=== PATIENT | female | born 1965 | race Caucasian/White ===

== ENCOUNTER 2018-10-01 17:48 | Emergency (ER) | payer SELFPAY ==
--- NOTE | 2018-10-01 18:23 | ER Document Report ---
HPI - HPI Patient complains to provider of: right knee pain Time Seen by Provider: 10/01/18 18:14 Onset: Other - 4 months Onset/Duration: Persistent Quality of pain: Achy Severity: Severe Pain Level: 5 Context: This 52-year-old female presents to the emergency department with complaints of right knee pain for the past 4 months. She denies trauma. She reports that she just woke up one day and her knee was hurting. She reports increased pain after she sits at her desk for long time and then stands up. Denies fever vomiting diarrhea. Reports that she is taken Tylenol and ibuprofen without relief of symptoms. Associated Symptoms: None Exacerbated by: Movement, Walking Relieved by: Denies Similar symptoms previously: No Recently seen / treated by doctor: No - REPRODUCTIVE Reproductive: DENIES: : Past Medical History - General Information source: Patient Last Menstrual Period: >1 year - Social History Smoking Status: Unknown if Ever Smoked Cigarette use (# per day): No Frequency of alcohol use: None Drug Abuse: None Occupation: sits at a desk Lives with: Family Family History: None Patient has suicidal ideation: No Patient has homicidal ideation: No - Past Medical History Cardiac Medical History: Denies: Hx Coronary Artery Disease, Hx DVT Pulmonary Medical History: Denies: Hx Asthma Endocrine Medical History: Denies: Hx Diabetes Mellitus Type 1, Hx Diabetes Mellitus Type 2 Past Surgical History: Reports: Hx Tubal Ligation Vertical Provider Document - CONSTITUTIONAL Agree With Documented VS: Yes Exam Limitations: No Limitations General Appearance: WD/WN, No Apparent Distress - INFECTION CONTROL TRAVEL OUTSIDE OF THE [place] IN LAST 30 DAYS: No - HEENT HEENT: Atraumatic, Normocephalic - NECK Neck: Supple - RESPIRATORY Respiratory: No Respiratory Distress - CARDIOVASCULAR Cardiovascular: Regular Rate - MUSCULOSKELETAL/EXTREMETIES Musculoskeletal/Extremeties: MAEW, FROM, Tender - anterior right knee ttp, no erythema,no waRMTH, no obvious swelling, FROM, c/o pain with extension of leg, no obvious deformity, good pedal pulse good cap refill, neg homans, no calf pain - NEURO Level of Consciousness: Awake, Alert, Appropriate Motor/Sensory: No Motor Deficit - DERM Integumentary: Warm, Dry Adult Front & Back Diagram: 1 - reports pain, ttp, no obvious swelling, no erythema, no warmth. Course - Re-evaluation Re-evalutation: 10/01/18 19:04 This 52-year-old female presents to the emergency department with right knee pain for the past 4 months. Denies trauma. Reports the knee hurts more when she sits for long time and goes to stand up. Denies past medical history of injury to the knee. Knee X-Ray 10/01/18 18:21 IMPRESSION: Significant joint effusion. No acute osseous finding. 10/01/18 19:43 Patient was instructed on joint effusion. She would like to be treated with Olman wrap compression ice and follow-up with orthopedics. She reports her is also being seen on the main side of the emergency department because he recently had brain surgery and is having effects from that. She is worried that he is going to be transferred to [facility]. She would like to be with him now. She was instructed on signs and symptoms of infection to the knee. She was instructed that she does need to be seen by orthopedics for aspiration of the fluid. She verbalized understanding to all instructions. - Vital Signs Vital signs: Temp Pulse Resp BP Pulse Ox 98.2 F 68 16 145/76 H 94 10/01/18 18:01 10/01/18 18:01 10/01/18 18:01 10/01/18 18:01 10/01/18 18:01 - Diagnostic Test Radiology reviewed: Image reviewed, Reports reviewed Discharge - Discharge Clinical Impression: Right knee pain, Effusion, right knee Condition: Stable Disposition: HOME, SELF-CARE Instructions: Olman Wrap ([facility]), Ice & Elevation ([facility]), Knee Effusion ([facility]), Oral Narcotic Medication ([facility]) Additional Instructions: *You have been evaluated for right knee pain, effusion *Maintain the olman wrap *Rest/Ice/Elevate your knee *Follow up with orthopedics this week for evaluation and aspiration as indicated *Take medication as prescribed *Return to ED for worsening condition, changes, needs Prescriptions: Ibuprofen [Motrin 800 mg Tablet] 800 mg PO TID #15 tablet Forms: Elevated Blood Pressure, Return to Work Referrals: MALOU DAWKINS MD [ACTIVE PROVISIONAL STAFF] - Follow up as needed [facility] [Provider Group] - Follow up as needed
--- NOTE | 2018-10-01 18:56 | RADIOLOGY REPORT (SQ) ---
EXAM DESCRIPTION: KNEE RIGHT 4 VIEWS COMPLETED DATE/TIME: 10/01/2018 6:48 pm REASON FOR STUDY: pain COMPARISON: None. NUMBER OF VIEWS: Four views. TECHNIQUE: AP, lateral, and both oblique radiographic images acquired of the right knee. LIMITATIONS: None. FINDINGS: MINERALIZATION: Normal. BONES: No acute fracture or dislocation. No worrisome bone lesions. JOINT: There is a joint effusion. SOFT TISSUES: No soft tissue swelling. No radio-opaque foreign body. OTHER: No other significant finding. IMPRESSION: Significant joint effusion. No acute osseous finding. TECHNICAL DOCUMENTATION: JOB ID: [id number] [employer]- All Rights Reserved Reading location - IP/workstation name: [email or web address]
[2018-10-01] MEDS ORDERED: HYDROCODONE/ACETAMINOPHEN 5-325 MG (6 TAB/ER DISP) PO PRN (19:08)
[2018-10-01 20:30] VITALS: BP 148/76
== END 2018-10-01 20:33 | disposition home or self-care (01) ==
LOC: EDBD → ER 17:48
DX: M25.561 Pain in right knee (principal); M25.461 Effusion, right knee

== ENCOUNTER 2019-02-12 07:23 | Emergency (ER) | payer SELFPAY ==
[2019-02-12] MEDS ORDERED: PREDNISONE 20 MG TABLET PO ONE (09:20)
[2019-02-12] MEDS ORDERED: IPRATROPIUM/ALBUTEROL 0.5-2.5 MG/3 ML AMPUL NEB ONE (09:20)
[2019-02-12] MEDS: ALBUTEROL SULFATE 0.083% NEB 2.5 MG/3 ML AMPUL NEB SCH ×2 (09:27→10:45)
[2019-02-12] MEDS ORDERED: METHYLPREDNISOLONE INJ 125 MG/2 ML SDV IV ONE (09:57)
[2019-02-12] MEDS ORDERED: BENZONATATE 100 MG CAPSULE PO ONE (09:57)
--- NOTE | 2019-02-12 10:28 | RADIOLOGY REPORT (SQ) ---
EXAM DESCRIPTION: CHEST 2 VIEWS COMPLETED DATE/TIME: 02/12/2019 9:06 am REASON FOR STUDY: shortness of breath COMPARISON: None. EXAM PARAMETERS: NUMBER OF VIEWS: two views TECHNIQUE: Digital Frontal and Lateral radiographic views of the chest acquired. RADIATION DOSE: NA LIMITATIONS: none FINDINGS: LUNGS AND PLEURA: Lungs are hyperinflated. No opacities, masses or pneumothorax. No pleur al effusion. MEDIASTINUM AND HILAR STRUCTURES: No masses or contour abnormalities. HEART AND VASCULAR STRUCTURES: Heart normal size. No evidence for failure. BONES: No acute findings. HARDWARE: None in the chest. OTHER: No other significant finding. IMPRESSION: No acute cardiopulmonary disease. Hyperinflated lungs which can be seen with obstructiv e lung disease. TECHNICAL DOCUMENTATION: JOB ID: [id number] [employer]- All Rights Reserved Reading location - IP/workstation name: [email or web address]
[2019-02-12 10:36] LABS: ABSOLUTE EOSINOPHILS # (AUTO) 0.5 10^3/uL (0.0-0.6); ABSOLUTE LYMPHOCYTES (AUTO) 2.2 10^3/uL (0.5-4.7); ABSOLUTE MONOCYTES (AUTO) 0.4 10^3/uL (0.1-1.4); BASOPHILS % (AUTO) 0.4 % (0-2); EOSINOPHILS % (AUTO) 8.9 % (0-6); HEMATOCRIT 37.6 % (36.0-47.0); HEMOGLOBIN 13.1 g/dL (12.0-15.5); LYMPHOCYTES % (AUTO) 35.7 % (13-45); MEAN CORPUSCULAR HEMOGLOBIN 29.5 pg (27.0-33.4); MEAN CORPUSCULAR HGB CONC 34.8 g/dL (32.0-36.0); MEAN CORPUSCULAR VOLUME 85 fl (80-97); PLATELET COUNT 199 10^3/uL (150-450); RED BLOOD COUNT 4.45 10^6/uL (3.72-5.28); RED CELL DISTRIBUTION WIDTH 13.7 % (11.5-14.0); TOTAL CELLS COUNTED % (AUTO) 100 %; WHITE BLOOD COUNT 6.1 10^3/uL (4.0-10.5)
[2019-02-12 10:44] LABS: ALKALINE PHOSPHATASE 77 U/L (38-126); ANION GAP 6 (5-19); ASPARTATE AMINO TRANSFERASE 30 U/L (14-36); BILIRUBIN,DIRECT 0.2 mg/dL (0.0-0.4); BILIRUBIN,TOTAL 0.7 mg/dL (0.2-1.3); BLOOD UREA NITROGEN 13 mg/dL (7-20); CALCIUM 9.3 mg/dL (8.4-10.2); CARBON DIOXIDE 30 mmol/L (22-30); CHLORIDE 104 mmol/L (98-107); GLUCOSE 96 mg/dL (75-110); POTASSIUM 4.4 mmol/L (3.6-5.0)
--- NOTE | 2019-02-12 12:20 | ER Document Report ---
ED General - General Chief Complaint: Shortness Of Breath Stated Complaint: COUGH,CONGESTION,SHORT OF BREATH Time Seen by Provider: 02/12/19 08:23 Mode of Arrival: Ambulatory Information source: Patient TRAVEL OUTSIDE OF THE [place] IN LAST 30 DAYS: No - HPI Notes: Patient presents with cough and wheezing for proxy 1 week. She states she does have a history of asthma but has not had to use any type of inhaler for 70 years. She states over the last month she has had intermittent wheezing cough and congestion. She states her finally made her come to the hospital today. Her cough is been mainly nonproductive. No history of congestive heart failure. No significant pain other than generalized body aches. No vomiting or diarrhea. Patient's cough and shortness of breath have been constant. They have been worse with exertion and better with rest. No significant radiation symptoms. They have been moderate in intensity. She has not been using her inhaler at home. She is not recently been on any type of steroids. - Related Data Allergies/Adverse Reactions: No Known Allergies Allergy (Unverified 10/01/18 18:02) Home Medications: albuterol Past Medical History - General Information source: Patient - Social History Smoking Status: Never Smoker Frequency of alcohol use: None Drug Abuse: None Family History: None Patient has suicidal ideation: No Patient has homicidal ideation: No - Past Medical History Cardiac Medical History: Denies: Hx Coronary Artery Disease, Hx DVT Pulmonary Medical History: Denies: Hx Asthma Endocrine Medical History: Denies: Hx Diabetes Mellitus Type 1, Hx Diabetes Mellitus Type 2 Renal/ Medical History: Denies: Hx Peritoneal Dialysis Past Surgical History: Reports: Hx Tubal Ligation Review of Systems - Review of Systems Constitutional: Chills, Malaise, Weakness Cardiovascular: denies: Chest pain, Palpitations Respiratory: Cough, Short of breath -: Yes All other systems reviewed and negative Physical Exam - Vital signs Vitals: Temp Pulse Resp BP Pulse Ox 98.1 F 70 20 148/76 H 94 02/12/19 07:27 02/12/19 07:27 02/12/19 07:27 02/12/19 07:27 02/12/19 07:27 Interpretation: Normal - General General appearance: Appears well, Alert - HEENT Head: Normocephalic, Atraumatic Eyes: Normal Pupils: PERRL - Respiratory Respiratory status: No respiratory distress Chest status: Nontender Breath sounds: Wheezing - Moderate all casey Chest palpation: Normal - Cardiovascular Rhythm: Regular Heart sounds: Normal auscultation Murmur: No - Abdominal Inspection: Normal Distension: No distension Bowel sounds: Normal Tenderness: Nontender Organomegaly: No organomegaly - Back Back: Normal, Nontender - Extremities General upper extremity: Normal inspection, Nontender, Normal color, Normal ROM, Normal temperature General lower extremity: Normal inspection, Nontender, Normal color, Normal ROM, Normal temperature, Normal weight bearing. No: Rashard's sign - Neurological Neuro grossly intact: Yes Cognition: Normal Orientation: AAOx4 Seth Coma Scale Eye Opening: Spontaneous [place] Coma Scale Verbal: Oriented Seth Coma Scale Motor: Obeys Commands Seht Coma Scale Total: 15 Speech: Normal Motor strength normal: LUE, RUE, LLE, RLE Sensory: Normal - Psychological Associated symptoms: Normal affect, Normal mood - Skin Skin Temperature: Warm Skin Moisture: Dry Skin Color: Normal Course - Re-evaluation Re-evalutation: 02/12/19 12:19 Patient has a history of asthma and states she has not had a exacerbation in 7 to 8 years. However over the last month she has had URI symptoms and has been wheezing. On exam she is wheezing in all casey. She had some moderate leaf with steroids and albuterol. Therefore I will discharge her home with those as well as antibiotics. Chest x-ray shows no pneumonia. She is currently resting comfortably with good oxygen saturations and vitals. Her wheezing is significantly less after the treatment. However she had tremors to the point where I did not feel further treatments were warranted. - Vital Signs Vital signs: Temp Pulse Resp BP Pulse Ox 97.7 F 70 16 97/64 L 98 02/12/19 10:52 02/12/19 07:27 02/12/19 10:52 02/12/19 10:52 02/12/19 10:52 - Laboratory Result Diagrams: 02/12/19 09:15 02/12/19 09:15 Laboratory results interpreted by me: 02/12/19 09:15 Eos % (Auto) 8.9 H - Diagnostic Test Radiology reviewed: Image reviewed, Reports reviewed Discharge - Discharge Clinical Impression: URI (upper respiratory infection) Qualifiers: URI type: unspecified URI Qualified Code(s): J06.9 - Acute upper respiratory infection, unspecified Condition: Stable Disposition: HOME, SELF-CARE Instructions: Upper Respiratory Illness ([facility]) Prescriptions: Cefdinir 300 mg PO BID 7 Days #14 capsule Prednisone [Deltasone 20 mg Tablet] 3 tab PO DAILY 5 Days tablet Albuterol Sulfate [Proair HFA Inhalation Aerosol 8.5 gm MDI] 2 puff IH Q4H PRN #1 mdi PRN Reason: Forms: Return to Work
[2019-02-12 13:24] VITALS: BP 143/81
== END 2019-02-12 13:18 | disposition home or self-care (01) ==
LOC: ER 07:23
DX: J06.9 Acute upper respiratory infection, unspecified (principal); J45.909 Unspecified asthma, uncomplicated; R05 Cough; R52 Pain, unspecified; R68.83 Chills (without fever); R53.81 Other malaise; R53.1 Weakness
CPT/HCPCS: 99283; 36415; 85025; 80053; 83880; 71046; J2930; J7620

== ENCOUNTER 2019-03-26 17:38 | Emergency (ER) | payer SELFPAY | END 2019-03-26 22:35 | disposition left against medical advice (07) | LOC: ER 17:38 | DX: Z53.21 Procedure and treatment not carried out due to patient leaving prior to being seen by health care provider (principal) ==